=== PATIENT | male | born 1945 | race Caucasian/White ===

== ENCOUNTER 2018-11-20 16:48 | Inpatient (IN) ==
[2018-11-20] MEDS ORDERED: TYLENOL PO PRN (17:01)
[2018-11-20] MEDS ORDERED: NS 1,000 ML IV ONE (17:01)
[2018-11-20] MEDS ORDERED: SODIUM CHLORIDE 0.9% INJ PRN (17:01)
[2018-11-20] MEDS ORDERED: PHENERGAN IV PRN (17:01)
[2018-11-20] MEDS: LOVENOX SUBQ SCH (17:25)
[2018-11-20 18:07] LABS: BASO# 0.03 X1000 (0.0-0.2); BASO% 0.3 % (0.0-0.8); EOS# 0.14 X1000 (0.0-0.7); EOS% 1.6 % (0.0-10.0); HEMATOCRIT 48.6 % (42.0-52.0); HEMOGLOBIN 16.4 g/dL (14.0-18.0); IMM GRAN# 0.05 X1000 (0.0-0.04); IMM GRAN% 0.6 % (0.0-0.5); LYMPH# 1.14 X1000 (1.2-3.4); MCH 30.8 PG (27-31); MCHC 33.7 g/dL (33-37); MCV 91.2 FL (81-99); MONO# 0.35 X1000 (0.11-0.59); MPV 11.8 FL (7.4-10.4); NEUT# 7.07 X1000 (1.4-6.5); NEUT% 80.5 % (42.2-75.2); PLT 108 X1000 (130-400); RBC 5.33 XMIL (4.7-6.1); RDW 13.4 % (11.5-14.5); WBC 8.78 X1000 (4.8-10.8)
[2018-11-20 18:24] LABS: AGAP 17; ALB/GLOB RATIO 1.7; ALBUMIN 4.6 g/dL (3.5-5.0); ALKALINE PHOSPHATASE 70 U/L (32-122); AMYLASE 52 U/L (20-200); BUN 10 mg/dL (8-22); CALCIUM 9.8 mg/dL (8.8-10.2); CHLORIDE 98 mmol/L (98-107); COSMO 281; CREATININE 0.7 mg/dL (0.7-1.2); ESTIMATED GFR > 60; GLUCOSE 169 mg/dL (70-104); GOT 20 U/L (10-34); GPT 24 U/L (10-44); LIPASE 33 U/L (13-60); SODIUM 139 mmol/L (136-145); TCO2 24 mmol/L (25-35); TOTAL BILIRUBIN 0.98 mg/dL (0.20-1.00); TOTAL PROTEIN 7.3 g/dL (6.3-8.3)
[2018-11-20] MEDS: NS 1,000 ML IV SCH (18:38)
[2018-11-21] MEDS: PROTONIX PO SCH (06:22)
[2018-11-21] MEDS: NS 1,000 ML IV SCH ×2 (06:22→21:22)
[2018-11-21] MEDS: ZOLOFT PO SCH (09:38)
[2018-11-21] MEDS: MICARDIS PO SCH (09:38)
--- NOTE | 2018-11-21 10:15 | PROGRESS NOTE ---
DATE: 11/21/2018 SUBJECTIVE: Mr. Steve Felix was admitted to [facility] with intractable nausea and vomiting. He continues with nausea and intermittent episodes of vomiting. He is still having some abdominal discomfort with watery diarrhea. He had recently completed a 10-day course of oral Levaquin for walking pneumonia. OBJECTIVE: Temperature is 98.4, pulse 63, blood pressure 146/98. Cardiovascular: Regular rate and rhythm. Lungs: Clear. Abdomen: Mild discomfort in the right upper quadrant and epigastrium. No rebound or guarding. DIAGNOSTIC DATA: Various laboratory studies were obtained. A CBC demonstrated a white count of 8.7, hemoglobin 16.4, hematocrit 48.6 and platelet count of 108,000. Electrolytes demonstrate the following: Sodium 139, potassium 4.0, BUN is 10, creatinine 0.7 and glucose 169. Amylase and lipase were within normal limits. ASSESSMENT AND PLAN: 1. Intractable nausea and vomiting. He has had a previous cholecystectomy. Liver function tests are normal. His amylase and lipase were normal which would suggest that there is no pancreatitis. You can see pancreatitis with ARBs. I am going to check an ultrasound of the abdomen. We will continue Phenergan as needed for nausea and vomiting. 2. Diarrhea. Given recent antibiotic use, I am going to check stools for C. difficile toxin and antigen. cc: Radha Barraza MD
--- NOTE | 2018-11-21 13:43 | Diag Imaging Result Doc PS360 ---
EXAM: US ABDOMEN-COMPLETE 11/21/2018 HISTORY: persistant nausea and vomiting diarrhea TECHNIQUE: Abdominal ultrasound COMMENT: The liver is hyperechoic. There is no biliary dilatation the common bile duct measuring less than 7 mm. The kidneys are without evidence of hydronephrosis. There is what appears to be a septated cyst in the lower pole of the left kidney measuring 2.1 cm in greatest dimension. The gallbladder is surgically absent. The visualized portions of the inferior vena cava are within normal limits. The aorta is slightly distended with a maximum AP diameter of 2.8 cm. The pancreas is obscured. There are no abnormal fluid collections. The spleen is not enlarged. IMPRESSION: Hepatic steatosis. Septated cyst in the left kidney. Further evaluation with CT may be desirable. Abdominal aortic aneurysm. Electronically signed by Rupert Crawford 11/21/2018 1:41 PM
[2018-11-21] MEDS: LOVENOX SUBQ SCH (17:03)
[2018-11-22] MEDS: PROTONIX PO SCH (06:10)
[2018-11-22] MEDS: ZOLOFT PO SCH (08:16)
[2018-11-22] MEDS: MICARDIS PO SCH (08:16)
[2018-11-22] MEDS: NS 1,000 ML IV SCH (11:07)
[2018-11-22 11:43] VITALS: BP 124/81
--- NOTE | 2018-11-23 17:40 | DISCHARGE SUMMARY ---
ADMISSION DATE: 11/21/2018 DISCHARGE DATE: 11/22/2018 DISCHARGE DIAGNOSES: 1. Volume depletion. 2. Intractable nausea and vomiting. 3. Gastroesophageal reflux disease. 4. Major depression. 5. Essential hypertension. 6. History of tobacco abuse in the past. 7. History of malignant neoplasm of the prostate. 8. History of radical prostatectomy. DISCHARGE INSTRUCTIONS: 1. Return to clinic in 1 week to see me, Dr. Eleazar Barraza. 2. Activity as tolerated. 3. GI soft diet. DISCHARGE MEDICATIONS: Pantoprazole 40 mg daily, acetaminophen 650 mg q.6 hours p.r.n., Zoloft 100 mg daily, amlodipine 5 mg daily, Telmisartan 40 mg daily. DISCHARGE PHYSICAL EXAMINATION: General: This is a well-developed, well-nourished, 73-year-old gentleman in no apparent distress. Vital signs: He is afebrile. Vital signs are stable. CV: Regular rate and rhythm. Lungs: Clear. Abdomen: Soft, nontender, with active bowel sounds. No hepatosplenomegaly. No abdominal bruits. Extremities: Without edema. HISTORY AND HOSPITAL COURSE: Mr. Steve Felix presented to my office with intractable nausea and vomiting. He vomited multiple times in my office. He had been taking Zofran without any improvement in his symptoms. We admitted him initially as an outpatient with observation services. We rehydrated him aggressively with normal saline. We treated his nausea and vomiting on a p.r.n. basis with Phenergan. He has had a previous cholecystectomy. Liver function tests were normal. His amylase and lipase were normal. He was still having some nausea and vomiting on hospital day #2 and we converted him to an inpatient. An ultrasound of the abdomen showed fatty liver. With aggressive rehydration his nausea and vomiting improved and by that evening, we started him on clear liquids. He was able to tolerate clear liquids overnight and we advanced him to a GI soft diet this morning, for which he had no nausea, vomiting, or abdominal pain. We felt that he was stable for discharge and he will follow up in my office in 1 week. cc: Radha Barraza MD
== END 2018-11-22 14:46 | disposition home or self-care (01) | DRG 641 ==
LOC: DIRADM → 3N 16:48
PROVIDERS: ADMIT Internal Medicine; ATTEND Internal Medicine